=== PATIENT | female | born 1985 | race Caucasian/White ===

== ENCOUNTER 2016-11-04 11:47 | Observation (INO) | payer MEDICAID ==
[2016-11-04 12:41] VITALS: BP 113/77; PULSE 72
== END 2016-11-04 13:00 | disposition home or self-care (01) ==
LOC: MED SURG 11:47 → UNDODISOB 13:00
PROVIDERS: ADMIT Family Medicine; ATTEND Family Medicine
DX: Z34.03 Encounter for supervision of normal first pregnancy, third trimester (principal)
CPT/HCPCS: 59025; G0378

== ENCOUNTER 2016-11-30 11:39 | Observation (INO) | payer BC, MEDICAID ==
[2016-11-30 12:13] VITALS: BP 120/78; PULSE 78; O2SAT 100
--- NOTE | 2016-11-30 21:53 | XRAY ---
Exam: OB limited ultrasound from 11/30/2016. Comparison: OB ultrasound greater than 14 weeks from 06/30/2016. Indication: Amniotic fluid index. Findings: Four-quadrant amniotic fluid index measures 10.84 cm which is within normal limits for this stage of (normal range being 6.30 - 23.66). No other images were obtained. Impression: 1. Normal amniotic fluid index of 10.84 cm.
== END 2016-11-30 13:45 | disposition home or self-care (01) ==
LOC: OB 11:39
PROVIDERS: ADMIT Family Medicine; ATTEND Family Medicine
DX: Z34.03 Encounter for supervision of normal first pregnancy, third trimester (principal)
CPT/HCPCS: 59025; 76815; G0378

== ENCOUNTER 2016-12-03 11:14 | Observation (INO) | payer BC, MEDICAID ==
[2016-12-03 11:42] VITALS: BP 106/69; PULSE 101
== END 2016-12-03 12:40 | disposition home or self-care (01) ==
LOC: OB 11:14
PROVIDERS: ADMIT Family Medicine; ATTEND Family Medicine
DX: Z34.03 Encounter for supervision of normal first pregnancy, third trimester (principal)
CPT/HCPCS: 59025; G0378

== ENCOUNTER 2016-12-05 05:50 | Inpatient (IN) | payer BC, MEDICAID ==
[2016-12-05] MEDS ORDERED: BRETHINE 1 MG/ML SQ PRN (18:54)
[2016-12-05] MEDS ORDERED: OMNIPEN 2 GM / NACL 100ML 100 ML IV ONE (18:56)
[2016-12-05] MEDS ORDERED: PITOCIN 30 UNITS/ LR 500 ML 500 ML IV SCH (19:00)
[2016-12-05 19:48] LABS: BASOPHIL % 0.3 % (0.0-0.4); Eosinophil % 1.4 % (0.00-5.0); Granulocytes % 67.7 % (36.0-66.0); Lymphocytes % 21.4 % (24.0-44.0); Mean Cell Volume 94.7 fl (78-100); Mean Corpuscular Hemoglobin 31.9 pg (26-32); Mean Platelet Volume 11.9 fl (6-9.5); Monocytes % 9.2 % (0.0-12.0); Platelet Count 189 K/mm3 (150-450); Red Blood Count 3.94 M/mm3 (4.1-5.4); Red Cell Distribution Width 13.2 % (11.5-14.0); White Blood Count 11.1 K/mm3 (4.0-10.5)
[2016-12-05] MEDS ORDERED: Cervidil 10 MG VAG SCH (22:00)
[2016-12-06] MEDS ORDERED: PITOCIN 30 UNITS/ LR 500 ML 500 ML IV SCH (06:00)
[2016-12-06] MEDS ORDERED: Ephedrine Sulfate 50 MG/ML IV PRN (06:01)
[2016-12-06] MEDS ORDERED: OB EPIDURAL NAROPIN/SUFENTANIL IN NACL EPIDURAL PRN (06:01)
[2016-12-06] MEDS ORDERED: Lactated Ringers 1,000 ML IV ONE (06:01)
[2016-12-06] MEDS ORDERED: Nubain 10 MG/ML IV ONE (06:01)
[2016-12-06] MEDS: Lactated Ringers 1,000 ML IV SCH ×2 (08:23→12:36)
[2016-12-06] MEDS ORDERED: OMNIPEN 1GM / NaCl 100ML 100 ML IV SCH (10:00)
[2016-12-06] MEDS ORDERED: NORCO 5/325 MG PO PRN (12:31)
[2016-12-06] MEDS ORDERED: Dermoplast Spray TP PRN (12:31)
[2016-12-06] MEDS ORDERED: TUCKS TP PRN (12:31)
[2016-12-06] MEDS ORDERED: Anucort-HC SUPPOSITORY PR PRN (12:31)
[2016-12-06] MEDS ORDERED: CORTISONE 1% CREAM TP PRN (12:31)
[2016-12-06] MEDS ORDERED: Ambien 10 MG PO PRN (12:31)
[2016-12-06] MEDS ORDERED: Dulcolax 10 MG SUPP PR PRN (12:31)
[2016-12-06] MEDS ORDERED: Restoril 15 MG PO PRN (12:31)
[2016-12-06] MEDS ORDERED: Rhogam Plus 300 MCG IM ONE (13:32)
[2016-12-06] MEDS: Nicoderm CQ 21 MG TOP SCH (14:55)
[2016-12-06] MEDS ORDERED: XYLOCAINE 1% HCL 20 ML MDV IJ PRN (19:10)
[2016-12-06] MEDS: Colace 100 MG PO SCH (21:41)
[2016-12-07 05:41] LABS: BASOPHIL % 0.1 % (0.0-0.4); Eosinophil % 0.9 % (0.00-5.0); Granulocytes % 71.4 % (36.0-66.0); Lymphocytes % 20.6 % (24.0-44.0); Mean Cell Volume 96.2 fl (78-100); Platelet Count 209 K/mm3 (150-450); Red Blood Count 3.95 M/mm3 (4.1-5.4); Red Cell Distribution Width 13.6 % (11.5-14.0); White Blood Count 15.1 K/mm3 (4.0-10.5)
[2016-12-07 05:58] LABS: Mean Corpuscular Hemoglobin 31.8 pg (26-32)
[2016-12-07] MEDS: TYLENOL EXTRA STRENGTH 500 MG PO PRN ×2 (08:00→15:28)
[2016-12-07] MEDS: FERREX 150 PO SCH (10:52)
[2016-12-07] MEDS: Colace 100 MG PO SCH ×2 (10:52→21:16)
[2016-12-07] MEDS: MOTRIN 400 MG PO PRN (10:58)
[2016-12-07] MEDS: Nicoderm CQ 21 MG TOP SCH (13:31)
[2016-12-08] MEDS: MOTRIN 400 MG PO PRN (04:26)
--- NOTE | 2016-12-08 08:55 | PCM.DS ---
Discharge Summary Date of Admission: 12/06/16 05:50 Admitting Physician: HERACLIO CARDONA Consults: Consults on Case 12/06/16 06:02 Notify Anesthesia Provider PRN Primary Care Provider: HERACLIO CARDONA Allergies Allergies No Known Drug Allergies Allergy (Unverified 11/30/16 11:58) Hospital Summary - Hospital Course Hospital Course: came in at term for induction of labor, delivered vaginally without complication viable male. Doing well, bleeding is decreasing and pain is controlled with tylenol and ibuprofen. Doing well on nicotine patch. Bottle feeding. - Vitals & Intake/Output Vital Signs: Vital Signs Temperature 97.8 F 12/08/16 02:20 Pulse Rate 90 12/08/16 02:20 Respiratory Rate 18 12/08/16 02:20 Blood Pressure 123/59 12/08/16 02:20 O2 Sat by Pulse Oximetry Intake & Output: Intake & Output 12/05/16 12/06/16 12/07/16 12/08/16 11:59 11:59 11:59 11:59 Intake Total 4000 Output Total 1100 Balance -1100 4000 Weight 62.596 kg - Lab Result Diagrams: 12/07/16 05:15 Discharge Exam General Appearance: no apparent distress Neurologic Exam: alert, oriented x 3, cooperative Skin Exam: normal color, warm, dry Neck Exam: normal inspection Respiratory Exam: normal breath sounds, lungs clear Cardiovascular Exam: regular rate/rhythm, normal heart sounds, No murmur Gastrointestinal/Abdomen Exam: soft, tenderness (mild fundal ttp), other ( fundus firm under umbilicus) Extremity Exam: normal inspection, No pedal edema, No swelling Final Diagnosis/Problem List - Final Discharge Diagnosis/Problem (1) Vaginal delivery Current Visit: Yes Status: Acute Assessment & Plan: Doing great, home today with baby. (2) Tobacco abuse Current Visit: Yes Status: Chronic Assessment & Plan: Doing well here on nicotine patch; will rx for home use. f/u with me in 1-2 wks. - Discharge Disposition: Home, Self-Care Condition: Stable Prescriptions: New Nicotine 21 mg [Nicoderm CQ 21 MG] 21 mg TOP Q24H #14 patch Continue Vits W-Ca,Fe,FA(<1Mg) [] 1 tab PO DAILY
[2016-12-08 09:50] VITALS: BP 104/65; PULSE 80
[2016-12-08] MEDS: Colace 100 MG PO SCH (11:15)
[2016-12-08] MEDS: FERREX 150 PO SCH (11:15)
== END 2016-12-08 12:45 | disposition home or self-care (01) | DRG 775 ==
LOC: OB 05:50 → OBSVTOIN 12-06 05:50
PROVIDERS: ADMIT Family Medicine; ATTEND Family Medicine
PROC: 10E0XZZ Delivery of Products of Conception, External Approach (ICD-10-PCS; principal; 2016-12-06)
PROC: 0KQM0ZZ Repair Perineum Muscle, Open Approach (ICD-10-PCS; 2016-12-06)
DX: O42.92 Full-term premature rupture of membranes, unspecified as to length of time between rupture and onset of labor (principal); O70.1 Second degree perineal laceration during delivery; Z3A.41 41 weeks gestation of pregnancy; Z37.0 Single live birth
CPT/HCPCS: 36415; 80307; 85025; 85461; 86850; 86900; 86901; 94799; G0378; J0290; J2300; J2590; J2790; J2795; A9270-GY